=== PATIENT | female | born 1960 | race Caucasian/White ===

== ENCOUNTER → 2018-04-27 10:25 | Outpatient (CLI) | payer OTHER, SELFPAY ==
--- NOTE | 2018-04-27 | DI.MRI.S_ITS ---
PROCEDURE: MR SHOULDER LT WO CON INDICATIONS: RIGHT SHOULDER PAIN WITH DECREASED RANGE OF MOTION TECHNIQUE: Noncontrast oblique coronal T2 fast spin echo with fat saturation, oblique sagittal T1 spin echo and T2 fast spin echo with fat saturation, axial T1 spin echo and T2 fast spin echo with fat saturation through the shoulder. COMPARISON: None. FINDINGS: Image quality: Diagnostic. Rotator cuff: There is prominent thickening and increased signal noted involving the supraspinatus and infraspinatus tendons with predominately moderate grade partial-thickness tearing evident. There may be high grade articular surface partial thickness tearing at the junction of the distal supraspinatus and infraspinatus tendons. No convincing full-thickness tear is evident. Tearing extending along the supraspinatus and infraspinatus myotendinous junctions likely is present. There is mild subscapularis tendinopathy. The teres minor tendon is intact. No significant atrophy of the rotator cuff muscles is evident. Bones and bursae: There is no acute fracture, dislocation, suspicious osseous lesion, or evidence of avascular necrosis. There is prominent marrow edema identified involving the mid aspect of the glenoid, which is likely degenerative, given overlying defects of the hyaline articular cartilage. Moderate degenerative changes of the glenohumeral joint are present with extensive accumulation of the humeral head and glenoid fossa as well as prominent inferior marginal osteophytes. There is a moderate-sized glenohumeral joint effusion. There are mild degenerative changes of the acromioclavicular joint with slight downsloping of the lateral acromion. A moderate amount of fluid is contained within the subacromial subdeltoid bursa. Capsule and soft tissues: Evaluation of the labrum and the glenohumeral ligaments is difficult without intra-articular contrast. Degenerative tearing along the entire length of the posterior labrum is evident. No detached labral fragments are appreciated. The long head of the biceps tendon is positioned within the bicipital groove. However, there is prominent thickening and increased signal identified involving the intra-articular portion of this tendon. No full-thickness tear is evident. No acute injuries involving the glenohumeral ligaments are suspected. IMPRESSION: 1. Predominately moderate grade intrasubstance/delaminating partial-thickness tearing of the supraspinatus and infraspinatus tendons with corresponding severe tendinopathy. A high grade articular surface partial thickness tear may be present at the junction of these tendons. 2. Mild subscapularis tendinopathy. 3. Moderate degenerative changes of the glenohumeral joint. Marrow edema involving the glenoid is likely degenerative. Bone contusion may have this appearance. 4. Moderate glenohumeral joint effusion. 5. Moderate amount of fluid within the subacromial subdeltoid bursa. Please correlate clinically for possible bursitis. 6. Extensive posterior labral tearing is likely degenerative. Please clinically cleared. 7. Moderate tendinopathy involving interarticular portion of the biceps tendon. Dictated by: Vishnu Pak M.D. on 04/27/2018 at 11:52 Approved by: Vishnu Pak M.D. on 04/27/2018 at 11:56
== END ==
PROVIDERS: Visit Provider Family Medicine
DX: M25.511 Pain in right shoulder (principal); S46.811A Strain of other muscles, fascia and tendons at shoulder and upper arm level, right arm, initial encounter; M19.011 Primary osteoarthritis, right shoulder; S43.401A Unspecified sprain of right shoulder joint, initial encounter
CPT/HCPCS: 73221